=== PATIENT | female | born 1940 | race Caucasian/White ===

== ENCOUNTER 2016-04-19 09:08 | Outpatient (CLI) ==
[2016-04-19 12:43] LABS: BASOPHILS # (AUTO) 0.1 K/uL (0-0.2); BASOPHILS % (AUTO) 0.6 % (0.0-3.0); BILIRUBIN,URINE Negative (NEGATIVE); EOSINOPHILS # (AUTO) 0.4 K/ul (0.0-0.7); EOSINOPHILS % (AUTO) 4.6 % (0.0-7.0); HEMATOCRIT 42.2 % (37.0-47.0); HEMOGLOBIN 14.1 g/dl (12.0-16.0); IMMATURE GRANULOCYTE % (AUTO) 0.4 % (0.0-5.0); KETONES,URINE Negative (NEGATIVE); LEUKOCYTE ESTERASE ,URINE Trace (NEGATIVE); LYMPHOCYTES % (AUTO) 47.5 (10.0-50.0); MEAN CORPUSCULAR HEMOGLOBIN 32.2 pg (27.0-31.0); MEAN CORPUSCULAR HGB CONC 33.4 (31.8-35.4); MEAN CORPUSCULAR VOLUME 96.3 fl (81.0-99.0); MONOCYTES # (AUTO) 0.7 K/uL (0.4-2.0); NEUTROPHILS # (AUTO) 3.3 K/ul (2.0-6.9); NEUTROPHILS % (AUTO) 38.9; NITRITE,URINE Negative (NEGATIVE); PLATELET COUNT 275 10^3/uL (140-440); PROTEIN,URINE Negative (NEGATIVE); RED BLOOD COUNT 4.38 10^6/ul (4.20-5.40); URINE, BLOOD Negative (NEGATIVE); WHITE BLOOD COUNT 8.49 K/ul (4.6-10.2)
[2016-04-19 12:53] LABS: ADD URINE MICROSCOPIC YES
[2016-04-19 12:54] LABS: ALBUMIN 3.8 g/dL (3.4-5.0); ALBUMIN/GLOBULIN RATIO 1.06; ANION GAP 18.1; BILIRUBIN,TOTAL 0.43 mg/dL (0.00-1.20); BUN/CREATININE RATIO 17.64; CALCIUM 10.3 mg/dL (8.2-10.2); CHOL/HDL RATIO 3.9 (4.5-5.5); CREATININE 1.36 mg/dL (0.60-1.30); POTASSIUM 4.1 mmol/L (3.5-5.10); TOTAL PROTEIN 7.4 g/dL (5.8-8.1)
== END 2016-04-19 09:09 | disposition home or self-care (01) ==
LOC: LAB 09:08
PROVIDERS: ATTEND General Practice
DX: E78.5 Hyperlipidemia, unspecified (principal); I10 Essential (primary) hypertension; N18.3 Chronic kidney disease, stage 3 (moderate); G47.00 Insomnia, unspecified; E78.1 Pure hyperglyceridemia; Z79.899 Other long term (current) drug therapy
CPT/HCPCS: 36415; 80053; 80061; 81001; 85025

== ENCOUNTER 2016-05-05 12:01 | Outpatient (CLI) ==
--- NOTE | 2016-05-05 12:28 | DI ---
Exam: Two views right hip. Clinical indication: Right hip pain. Findings / impression: There are no fractures, dislocations or other significant bony abnormalities.
== END 2016-05-05 12:02 | disposition home or self-care (01) ==
LOC: RAD 12:01
PROVIDERS: ATTEND General Practice
DX: M25.551 Pain in right hip (principal)

== ENCOUNTER 2016-06-23 10:46 | Outpatient (CLI) ==
--- NOTE | 2016-06-23 12:05 | CT ---
EXAM: CT facial bones without contrast. HISTORY: Initial presentation for facial trauma due to a fall. COMPARISON: None available. TECHNIQUE: Multiple axial images of the facial bones were obtained without contrast and were reform atted in the sagittal and coronal planes. FINDINGS: Mild rightward angulation of the anterior left nasal bone on axial image 35 noted. Bones of the face are otherwise intact. There is mild ethmoid sinus mucosal thickening. Partially calci fied structure in the posterior left sphenoid sinus noted. Mild inferior maxillary sinus mucosal th ickening noted bilaterally. No air-fluid levels seen within the paranasal sinuses. Temporomandibul ar joints appear intact. Degenerative changes present in the spine. No localized soft tissue abnor mality detected. IMPRESSION: Mildly displaced anterior left nasal bone fracture which is age indeterminate.
--- NOTE | 2016-06-23 12:10 | CT ---
EXAM: CT head without contrast HISTORY: Fall COMPARISON: CT maxillofacial same day TECHNIQUE: Serial axial images of the brain were obtained from the skull base to the vertex without IV contrast. FINDINGS: The ventricles, cisterns and sulci demonstrate generalized volume loss. The nolasco-white m atter junction is maintained. There is scattered low attenuation throughout the periventricular whi te matter most pronounced on the left.No midline shift or mass is identified. There is no abnormal intra or extra-axial fluid collection. The paranasal sinuses and mastoid air cells are clear. The osseous calvarium is intact. Facial bones to be evaluated on same day facial bone CT. IMPRESSION: 1. No acute intracranial abnormality or hemorrhage. 2. Moderate generalized volume loss and scattered microangiopathy. If further evaluation is clinic ally indicated, MRI may be obtained. 3. Further evaluation of the facial bone structures to be performed on same day CT facial bone.
--- NOTE | 2016-06-23 12:22 | CT ---
Examination: Noncontrast CT examination of the cervical spine. Comparison: None available. Reason for study: Fall. FINDINGS: Sclerotic changes are seen in the right C2 superior articulating facet. No discrete frac ture. Calcific density posterior to the C7 spinous process is likely chronic. Multilevel degenerativ e disc disease with loss of intervertebral body disc space height most notably at C5-6 and C6-7. Th ere is straightening of the cervical lordotic curve. The prevertebral soft tissues are within ozzy l limits. Impression: 1. No acute fracture or listhesis. 2. Multilevel degenerative disc disease with loss of intervertebral body disc space height at C5-C6 and C6-C7 and sclerotic changes in the right C2 superior articulating facet. 3. Calcific density inferior to the C7 spinous process is likely chronic as it is sclerotic and wel l marginated.
== END 2016-06-23 10:47 | disposition home or self-care (01) ==
LOC: RAD 10:46
PROVIDERS: ATTEND General Practice
DX: S00.83XA Contusion of other part of head, initial encounter (principal); R22.0 Localized swelling, mass and lump, head; M95.0 Acquired deformity of nose; W19.XXXA Unspecified fall, initial encounter

== ENCOUNTER 2016-08-04 15:54 | Outpatient (CLI) ==
--- NOTE | 2016-08-04 16:33 | DI ---
EXAM: Radiographs, right knee HISTORY: Right knee pain. COMPARISON: None available. TECHNIQUE: Three views. FINDINGS: Bone mineralization is decreased. There is no fracture or dislocation. Moderate medial compartment joint space narrowing noted. Small marginal osteophytes are present in all three knee j oint compartments. No focal soft tissue abnormality is seen. 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
== END 2016-08-04 15:55 | disposition home or self-care (01) ==
LOC: RAD 15:54
PROVIDERS: ATTEND Physical Medicine & Rehabilitation
DX: M25.561 Pain in right knee (principal)

== ENCOUNTER 2016-09-09 09:10 | Outpatient (CLI) ==
[2016-09-09 14:19] LABS: BILIRUBIN,URINE Negative (NEGATIVE); KETONES,URINE Negative (NEGATIVE); LEUKOCYTE ESTERASE ,URINE Negative (NEGATIVE); NITRITE,URINE Negative (NEGATIVE); PROTEIN,URINE Negative (NEGATIVE); URINE, BLOOD Negative (NEGATIVE)
[2016-09-09 14:25] LABS: BASOPHILS % (AUTO) 0.4 % (0.0-3.0); EOSINOPHILS # (AUTO) 0.2 K/ul (0.0-0.7); EOSINOPHILS % (AUTO) 1.6 % (0.0-7.0); HEMATOCRIT 42.8 % (37.0-47.0); HEMOGLOBIN 14.5 g/dl (12.0-16.0); IMMATURE GRANULOCYTE % (AUTO) 0.5 % (0.0-5.0); LYMPHOCYTES # (AUTO) 3.8 K/uL (0.60-3.4); LYMPHOCYTES % (AUTO) 34.7 (10.0-50.0); MEAN CORPUSCULAR HEMOGLOBIN 32.2 pg (27.0-31.0); MEAN CORPUSCULAR HGB CONC 33.9 (31.8-35.4); MEAN CORPUSCULAR VOLUME 94.9 fl (81.0-99.0); MONOCYTES # (AUTO) 0.9 K/uL (0.4-2.0); MONOCYTES % (AUTO) 7.9 (0-10); NEUTROPHILS % (AUTO) 54.9; PLATELET COUNT 211 10^3/uL (140-440); RED BLOOD COUNT 4.51 10^6/ul (4.20-5.40); WHITE BLOOD COUNT 10.94 K/ul (4.6-10.2)
[2016-09-09 14:28] LABS: ADD URINE MICROSCOPIC NO
[2016-09-09 14:45] LABS: ALBUMIN 3.8 g/dL (3.4-5.0); ALBUMIN/GLOBULIN RATIO 0.95; ANION GAP 13.6; BILIRUBIN,TOTAL 0.51 mg/dL (0.00-1.20); BUN/CREATININE RATIO 20.66; CALCIUM 10.7 mg/dL (8.2-10.2); CHOL/HDL RATIO 3.8 (4.5-5.5); CREATININE 1.21 mg/dL (0.60-1.30); POTASSIUM 3.6 mmol/L (3.5-5.10); TOTAL PROTEIN 7.8 g/dL (5.8-8.1)
== END 2016-09-09 09:11 | disposition home or self-care (01) ==
LOC: LAB 09:10
PROVIDERS: ATTEND General Practice
DX: E78.5 Hyperlipidemia, unspecified (principal); I10 Essential (primary) hypertension; N18.3 Chronic kidney disease, stage 3 (moderate); Z79.899 Other long term (current) drug therapy
CPT/HCPCS: 36415; 80053; 80061; 81001; 85025

== ENCOUNTER 2017-01-05 12:46 | Outpatient (CLI) ==
[2017-01-05 12:52] LABS: BASOPHILS % (AUTO) 0.3 % (0.0-3.0); EOSINOPHILS # (AUTO) 0.2 K/ul (0.0-0.7); EOSINOPHILS % (AUTO) 2.2 % (0.0-7.0); HEMATOCRIT 42.9 % (37.0-47.0); HEMOGLOBIN 14.6 g/dl (12.0-16.0); IMMATURE GRANULOCYTE % (AUTO) 0.4 % (0.0-5.0); LYMPHOCYTES # (AUTO) 3.4 K/uL (0.60-3.4); MEAN CORPUSCULAR HEMOGLOBIN 32.8 pg (27.0-31.0); MEAN CORPUSCULAR VOLUME 96.4 fl (81.0-99.0); MONOCYTES # (AUTO) 0.6 K/uL (0.4-2.0); MONOCYTES % (AUTO) 8.6 (0-10); NEUTROPHILS # (AUTO) 2.5 K/ul (2.0-6.9); NEUTROPHILS % (AUTO) 37.5; PLATELET COUNT 221 10^3/uL (140-440); RED BLOOD COUNT 4.45 10^6/ul (4.20-5.40); WHITE BLOOD COUNT 6.74 K/ul (4.6-10.2)
[2017-01-05 12:56] LABS: BILIRUBIN,URINE Negative (NEGATIVE); KETONES,URINE Negative (NEGATIVE); LEUKOCYTE ESTERASE ,URINE 1+ (NEGATIVE); NITRITE,URINE Positive (NEGATIVE); PH,URINE 6.5 (5-9); PROTEIN,URINE Negative (NEGATIVE); URINE, BLOOD Negative (NEGATIVE)
[2017-01-05 13:00] LABS: ADD URINE MICROSCOPIC YES
[2017-01-05 13:01] LABS: BACTERIA,URINE 3+ (NOT PRESENT)
[2017-01-05 13:07] LABS: ALBUMIN 3.5 g/dL (3.4-5.0); ALBUMIN/GLOBULIN RATIO 0.88; ANION GAP 12.1; BILIRUBIN,TOTAL 0.35 mg/dL (0.00-1.20); BUN/CREATININE RATIO 16.8; CALCIUM 10.3 mg/dL (8.2-10.2); CHOL/HDL RATIO 6.3 (4.5-5.5); CREATININE 1.19 mg/dL (0.60-1.30); POTASSIUM 4.1 mmol/L (3.5-5.10); TOTAL PROTEIN 7.5 g/dL (5.8-8.1)
== END 2017-01-05 12:47 | disposition home or self-care (01) ==
LOC: LAB 12:46
PROVIDERS: ATTEND General Practice
DX: E78.5 Hyperlipidemia, unspecified (principal); I10 Essential (primary) hypertension; N18.3 Chronic kidney disease, stage 3 (moderate); G47.00 Insomnia, unspecified; R25.2 Cramp and spasm; E83.52 Hypercalcemia; Z79.899 Other long term (current) drug therapy
CPT/HCPCS: 36415; 80053; 80061; 81001; 85025; 87086

== ENCOUNTER 2017-01-12 11:44 | Outpatient (CLI) ==
--- NOTE | 2017-01-12 12:58 | DI ---
EXAM: Lumbar spine five views HISTORY: Lower back pain FINDINGS: No comparison. There is moderate scoliosis convex to the left. Sacroiliac joints have mi ld arthropathy. Probable transitional vertebral body unit. Lowermost fully formed disc space taken as L5/S1. There is moderately severe facet arthropathy, especially lumbosacral junction. Diffuse mi ld to moderate degenerative endplate/disc disease. There is anterior spondylolisthesis of L4 on L5 b y an estimated 0.66 cm. No loss of vertebral body height or acute fracture. No obvious pars defect. Heavy vascular calcifications are present. IMPRESSION: Significant degenerative changes of the spine with scoliosis. There is anterior spondylolisthesis of L4 on L5.
== END 2017-01-12 11:45 | disposition home or self-care (01) ==
LOC: RAD 11:44
PROVIDERS: ATTEND General Practice
DX: M54.5 Low back pain (principal)

== ENCOUNTER 2017-05-12 14:00 | Outpatient (CLI) | END 2017-05-12 14:01 | disposition home or self-care (01) | LOC: LAB 14:00 | PROVIDERS: ATTEND General Practice | DX: E78.5 Hyperlipidemia, unspecified (principal); I10 Essential (primary) hypertension; N18.3 Chronic kidney disease, stage 3 (moderate); Z79.899 Other long term (current) drug therapy | CPT/HCPCS: 36415; 80053; 80061; 81001; 85025; 87086 ==

== ENCOUNTER 2017-09-12 09:09 | Outpatient (CLI) | END 2017-09-12 09:10 | disposition home or self-care (01) | LOC: FCC-LAB 09:09 | PROVIDERS: ATTEND General Practice | DX: E78.5 Hyperlipidemia, unspecified (principal); I10 Essential (primary) hypertension; N18.3 Chronic kidney disease, stage 3 (moderate); Z79.899 Other long term (current) drug therapy | CPT/HCPCS: 36415; 80053; 80061; 81001; 85025; 87086 ==

== ENCOUNTER 2018-02-09 09:01 | Outpatient (CLI) | END 2018-02-09 09:02 | disposition home or self-care (01) | LOC: RHC-LAB 09:01 | PROVIDERS: ATTEND General Practice | DX: N18.3 Chronic kidney disease, stage 3 (moderate) (principal); E78.1 Pure hyperglyceridemia; I10 Essential (primary) hypertension | CPT/HCPCS: 36415; 80053; 80061; 84100; 85025 ==

== ENCOUNTER 2018-06-09 08:36 | Outpatient (CLI) | END 2018-06-09 08:37 | disposition home or self-care (01) | LOC: RHC-LAB 08:36 | PROVIDERS: ATTEND General Practice | DX: E78.5 Hyperlipidemia, unspecified (principal); I10 Essential (primary) hypertension; N18.3 Chronic kidney disease, stage 3 (moderate); Z79.899 Other long term (current) drug therapy | CPT/HCPCS: 36415; 80053; 80061; 81001; 83036; 83525; 84443; 85025; 87086; 87186 ==

== ENCOUNTER 2018-09-19 08:59 | Outpatient (CLI) | END 2018-09-19 09:00 | disposition home or self-care (01) | LOC: RHC-LAB 08:59 | PROVIDERS: ATTEND General Practice | DX: E78.5 Hyperlipidemia, unspecified (principal); I10 Essential (primary) hypertension; N18.3 Chronic kidney disease, stage 3 (moderate); Z79.899 Other long term (current) drug therapy | CPT/HCPCS: 36415; 80053; 80061; 81001; 83036; 83525; 84443; 85025; 87086; 87186 ==

== ENCOUNTER 2018-12-12 12:53 | Outpatient (CLI) ==
--- NOTE | 2018-12-12 15:41 | US ---
EXAM: Duplex carotid Doppler ultrasound HISTORY: Dizzy TECHNIQUE: Jenkins scale and color Doppler imaging and spectral Doppler imaging of the carotid and vert ebral arteries was performed. FINDINGS: There is plaque seen within the right carotid bifurcation. Velocities within the proximal right internal carotid artery are normal and measure 57 cm/sec. The peak systolic velocity ratio is normal and measures 1.1. Normal waveforms and velocities are identified within the mid and distal r ight internal carotid artery. There is plaque seen within the left carotid bifurcation. The velocities within the proximal left in ternal carotid artery are normal and measure 39 cm/sec. The peak systolic velocity ratio is measurin g 1.0. Normal waveforms and velocities are identified within the mid and distal left internal caroti d artery. There is normal antegrade blood flow seen within the vertebral arteries bilaterally. IMPRESSION: There is plaque seen within the carotid bifurcation bilaterally causing mild less than 5 0% stenosis.
== END 2018-12-12 12:54 | disposition home or self-care (01) ==
LOC: RAD 12:53
PROVIDERS: ATTEND General Practice
DX: R42 Dizziness and giddiness (principal)